=== PATIENT | male | born 1980 | race Caucasian/White ===

== ENCOUNTER → 2019-11-04 14:37 | Outpatient (CLI) | payer BC, SELFPAY ==
--- NOTE | 2019-11-04 14:42 | CT_ITS ---
STUDY: CT ABDOMEN WITH CONTRAST REASON FOR EXAM: Male, 39 years old. UMBILICAL MASS? POSSIBLE HERNIA RADIATION DOSAGE (If Supplied By Facility): CTDIvol = ( 14.65 ) mGy, DLP = ( 870.92 ) mGycm TECHNIQUE: Transaxial images were obtained post I.V. administration of Oral and amp; IV READII-CAT and amp; 100ML ISOVUE 300, and oral contrast. Sagittal and coronal images were reconstructed. Individualized dose optimization techniques were used for this CT. COMPARISON: None. FINDINGS: The visualized lung bases are unremarkable. The visualized portions of the heart are within normal limits. Normal liver. Normal gallbladder and extrahepatic biliary system. Normal spleen. Normal pancreas. Normal bilateral adrenal glands. Unilateral hyperplasia is noted involving the right kidney. There is compensatory hypertrophy involving the left kidney. Normal visualized stomach. Normal small intestine. Normal colon. The appendix is not visualized. Normal abdominal aorta. Normal inferior vena cava. Normal retroperitoneum. A ventral periumbilical hernia is identified which measures 2.17 cm in maximal transverse dimension and contains mesenteric fat. No intestine is noted extending into this anterior wall periumbilical hernia. The osseous Lumbar Spine visualized osseous pelvis appears normal. CT/Abdomen WITH IV Contrast IMPRESSION: A 2.7 cm periumbilical hernia is identified containing mesenteric fat. Electronically Signed: Nicola Rodriguez, at 8:37 EST Tel , Service support ,
== END ==
DX: R19.05 Periumbilic swelling, mass or lump (principal)
CPT/HCPCS: 74160; Q9967